=== PATIENT | male | born 1980 | race Hispanic/Latino ===

== ENCOUNTER 2024-08-11 12:06 | Emergency (ER) | payer SELFPAY ==
[2024-08-11] MEDS ORDERED: Ketorolac Tromethamine 30 MG (1 mL) VIAL ONE (14:17)
[2024-08-11] MEDS ORDERED: Lidocaine 1% PF 5 ML VIAL ONE (14:17)
== END 2024-08-11 16:15 | disposition home or self-care (01) ==
LOC: ERS 12:06
DX: R10.11 Right upper quadrant pain (principal); R51.9 Headache, unspecified; I10 Essential (primary) hypertension; E11.9 Type 2 diabetes mellitus without complications; Z79.84 Long term (current) use of oral hypoglycemic drugs; Z75.8 Other problems related to medical facilities and other health care
CPT/HCPCS: 20610; 36415; 86141; 96372; J1885